=== PATIENT | male | born 1965 | race Caucasian/White ===

== ENCOUNTER 2019-10-27 21:20 | Emergency (ER) | payer OTHER, MEDICAID ==
[~2019-10-27] VITALS: Ht 177.8 cm; Wt 120.2 kg
[2019-10-27 21:20] VITALS: BP_SYST 132
[2019-10-27 23:27] LABS: BASOPHILS # (AUTO) 0.1 K/uL (0.0-0.2); BASOPHILS % (AUTO) 1.1 % (0.0-2.0); EOSINOPHILS # (AUTO) 0.2 K/uL (0.0-0.4); EOSINOPHILS % (AUTO) 2.6 % (0.0-4.0); HEMATOCRIT 39.9 % (36-54); HEMOGLOBIN 13.7 g/dL (14.0-18.0); LYMPHOCYTES % (AUTO) 24.7 % (20.5-51.5); MEAN CORPUSCULAR HEMOGLOBIN 33 pg (27-31); MEAN CORPUSCULAR HGB CONC 34 % (32-36); MEAN CORPUSCULAR VOLUME 95 fL (79.0-98.0); MONOCYTES # (AUTO) 0.7 K/uL (0.0-1.0); MONOCYTES % (AUTO) 8.1 % (1.7-9.3); NEUTROPHILS # (AUTO) 5.2 K/uL (1.8-7.7); NEUTROPHILS % (AUTO) 63.5 % (40.0-70.0); PLATELET COUNT (AUTO) 189 K/uL (130-430); RED BLOOD CELL COUNT(AUTO) 4.21 MIL/uL (4.2-6.2); RED CELL DISTRIBUTION WIDTH 13.5 % (9.0-15.0); WHITE BLOOD COUNT (AUTO) 8.2 K/uL (4.8-10.8)
--- NOTE | 2019-10-27 23:30 | NUR ---
Pt moved to ER bed 08.
--- NOTE | 2019-10-27 23:33 | NUR ---
SENT HERE FROM [facility] FOR BILATERAL LEG SWELLING AND POSSIBLE SPRAINED BILATERAL ANKLES ( CLAIMED BY PT.) PLACED IN BED 8-A. AMBULATED FROM [facility] TO BED WITHOUT PROBLEM. BLOOD DRAWN AND X-RAY DONE IN THE HALLWAY.
[2019-10-27 23:39] LABS: CALCIUM 8.1 mg/dL (8.4-11.0); CREATININE 1.13 mg/dL (0.55-1.30); POTASSIUM 3.9 mmol/L (3.5-5.1)
[2019-10-27 23:45] LABS: ALBUMIN 3.2 g/dL (3.4-4.8); TOTAL BILIRUBIN 0.3 mg/dL (0.0-1.0)
--- NOTE | 2019-10-27 23:55 | NUR ---
HOOKED TO THE MANAGEMENT TECH. 12 LEAD EKG DONE. REPORT TO BE REVIEWED BY SHANTANU.
--- NOTE | 2019-10-28 00:12 | NUR ---
GAUGE 18 IV LINE ESTABLISHED TO THE RIGHT AC.
--- NOTE | 2019-10-28 02:25 | NUR ---
PT. FOR DISCHARGE BACK TO [facility]. REPORT GIVEN TO NURSE ELZBIETA PATTERSON. AMBULANCE ETA IS 0330. PT.REMAINS STABLE AND PAIN FREE.
--- NOTE | 2019-10-28 03:48 | NUR ---
[facility] HERE TO [facility] DIRECTOR PT. REPORT GIVEN TO EMT'S SIMA. COPY OF LABS, VERBAL AND WRITTEN AFTERCARE INSTRUCTIONS GIVEN TO PT.,YOBANI ISIDRO STAFF AND EMT'S. VERBALIZED UNDERSTANDING. SALINE LOCK DISCONTINUED. IV CATHETER INTACT. LEFT UNIT VIA AMBULANCE [facility].
[2019-10-28 04:23] VITALS: BP_SYST 131
== END 2019-10-28 04:23 ==
LOC: SED 21:20 → EDBD 21:20 → SED 10-28 04:23
DX: R60.0 Localized edema (principal)
CPT/HCPCS: 36415; 71045; 80053; 83880; 84484; 85025; 93005; 99285